=== PATIENT | male | born 1985 | race African-American/Black ===

== ENCOUNTER 2023-09-29 19:53 | Emergency (ER) | payer OTHER ==
[~2023-09-29] VITALS: Ht 177.8 cm; Wt 61.0 kg
[2023-09-29 20:25] VITALS: TEMP 98.1; O2SAT 100
[2023-09-29] MEDS ORDERED: DOXYCYCLINE 100 MG in DEXT 5% WATER 100 ML IV STA (20:46)
[2023-09-29] MEDS ORDERED: VANCOMYCIN 1G PREMIX 200 ML IV ONE (21:00)
[2023-09-29] MEDS ORDERED: CEFTRIAXONE 1GM PREMIX 50 ML IV ONE (21:00)
[2023-09-29] MEDS ORDERED: SODIUM CHLORIDE 0.9% 1000ML BAG (SEPSIS BOLUS) IV ONE (21:00)
[2023-09-29] MEDS ORDERED: MORPHINE SULFATE 4 MG/ML CPJ (NOT FOR IM USE) IV STA (21:14)
[2023-09-29] MEDS ORDERED: ONDANSETRON HCL 4MG/2ML INJ IV STA (21:14)
[2023-09-29 21:22] LABS: BASOPHILS % 0.5 % (0.0-2.0); EOSINOPHILS % 3.2 % (0.0-5.0); HEMATOCRIT. 35.1 % (42.0-52.0); LYMPHOCYTES % 10.7 % (20.0-50.0); MEAN CORPUSCULAR HEMOGLOBIN 28.7 pg (28.0-32.0); MEAN CORPUSCULAR HGB CONC 34.1 g/dL (31.0-37.0); MEAN CORPUSCULAR VOLUME 84.2 fL (80.0-94.0); NEUTROPHILS % 76.6 % (40.0-76.0); RED BLOOD CELL COUNT 4.17 mill/uL (4.7-6.1); WHITE BLOOD COUNT 9.5 x1000/uL (4.5-11.0)
[2023-09-29 21:30] LABS: DIFFERENTIAL COMMENT 1
[2023-09-29] MEDS ORDERED: DOXYCYCLINE 100 MG in DEXT 5% WATER 100 ML IV NR (21:30)
[2023-09-29 21:31] LABS: INR 1.2; PARTIAL THROMBOPLASTIN TIME 32.9 sec (23.4-31.0); PROTHROMBIN TIME 12.3 sec (9.6-11.0)
[2023-09-29 21:40] LABS: ALANINE AMINOTRANSFERASE 23 IU/L (10-49); ASPARTATE AMINOTRANSFERASE 20 IU/L (<34); BILIRUBIN TOTAL 0.2 mg/dL (0.1-1.0); CALCIUM 9.4 mg/dL (8.7-10.4); CARBON DIOXIDE 32 mEq/L (21-32); CHLORIDE 101 mEq/L (98-107); CREATININE 0.6 mg/dL (0.6-1.3); GLUCOSE 100 mg/dL (70-105); POTASSIUM 4.5 mEq/L (3.5-5.1); PROTEIN TOTAL 8.6 g/dL (6.0-8.3); SODIUM 137 mEq/L (136-145); UREA NITROGEN BLOOD 8 mg/dL (9-23)
[2023-09-29 22:20] LABS: MEAN PLATELET VOLUME 6.3 fl (7.4-10.4); PLATELET 320 x1000/uL (130-400)
[2023-09-30] MEDS ORDERED: ONDANSETRON HCL 4MG/2ML INJ IV NR (02:30)
[2023-09-30] MEDS ORDERED: VANCOMYCIN 1G PREMIX 200 ML IV NR (02:30)
[2023-09-30] MEDS ORDERED: CEFTRIAXONE 1GM PREMIX 50 ML IV NR (02:30)
[2023-09-30] MEDS ORDERED: MORPHINE SULFATE 4 MG/ML CPJ (NOT FOR IM USE) IV NR (02:30)
[2023-09-30 05:20] LABS: CLARITY URINE CLOUDY (CLEAR); COLOR URINE YELLOW (YELLOW); GLUCOSE URINE NEGATIVE (NEGATIVE); KETONES URINE NEGATIVE (NEGATIVE); LEUKOCYTE ESTERASE URINE 2+ (NEGATIVE); NITRITE URINE NEGATIVE (NEGATIVE); OCCULT BLOOD URINE NEGATIVE (NEGATIVE); PH URINE 7.5 (4.5-8.0); PROTEIN URINE TRACE (NEGATIVE); SPECIFIC GRAVITY URINE 1.021 (1.005-1.030)
[2023-09-30] MEDS ORDERED: MORPHINE SULFATE 10 MG/ML CPJ IV ONE (05:45)
[2023-09-30 06:01] LABS: WBC URINE 15-25 /hpf (0-2)
[2023-09-30 06:02] LABS: BACTERIA URINE TRACE; RBC URINE 0-2 /hpf (0-2); SQUAMOUS EPITHELIAL CELL URINE 1+ /lpf (RARE/1+)
[2023-09-30 06:19] VITALS: BP 115/65; PULSE 97; RESP 15
[2023-10-02 09:10] LABS: CHLAMYDIA TRACHOMATIS NAA Negative (Negative)
[2023-10-02 17:06] LABS: NEISSERIA GONORRHOEAE NAA Positive (Negative)
== END 2023-09-30 09:00 | disposition short-term general hospital (02) ==
LOC: ER 19:53
DX: N45.2 Orchitis (principal); L97.429 Non-pressure chronic ulcer of left heel and midfoot with unspecified severity; Z98.890 Other specified postprocedural states
CPT/HCPCS: 80053; 83605; 85025; 85610; 85730; 87040; 36415; 84145; 71045; 73620; 93976; 76870; 93005; 36556; 96367; 96368; 96365; 96366; 96375; 96376; 99285; 87491; 87591; 81003; 87086; J3490; J7060; J7030; J0696; J2405; J3370; J2270 ×2; Z7610 ×2

== ENCOUNTER 2025-01-06 11:29 | Emergency (ER) | payer OTHER ==
[~2025-01-06] VITALS: Ht 177.8 cm; Wt 61.2 kg
[2025-01-06 11:31] VITALS: O2SAT 100
[2025-01-06 11:50] VITALS: BP 131/86; PULSE 118; RESP 16; TEMP 36.9; O2SAT 100
[2025-01-06] MEDS ORDERED: LACTATED RINGERS 1,000 ML IV SCH (12:00)
[2025-01-06] MEDS ORDERED: VANCOMYCIN 1.5GM/250ML 250 ML IV SCH (12:00)
[2025-01-06] MEDS ORDERED: AMOX1TAB16 MT (12:34)
[2025-01-06] MEDS ORDERED: SULF1TAB48 MT (12:34)
[2025-01-06] MEDS: AMOXICILLIN/POTASSIUM CLAVULANATE 875/125MG TAB PO ONE (12:40)
[2025-01-06] MEDS: SULFAMETHOXAZOLE/TRIMETHOPRIM 800/160MG TABLET PO ONE (12:46)
[2025-01-06] MEDS ORDERED: PIPERACILLIN/TAZO 3.375G/50ML 50 ML IV SCH (14:00)
== END 2025-01-06 13:20 | disposition left against medical advice (07) ==
LOC: ER 11:29
DX: L08.9 Local infection of the skin and subcutaneous tissue, unspecified (principal); I49.9 Cardiac arrhythmia, unspecified
CPT/HCPCS: 71045; 73590; 73610; 93005; 99284